=== PATIENT | female | born 1975 | race Caucasian/White ===

== ENCOUNTER → 2018-09-03 15:32 | Outpatient (CLI) | payer OTHER, SELFPAY ==
[2016-02-16 12:21] VITALS: BMI 23.1
== END ==
PROVIDERS: Family Provider Family Medicine; PCP Family Medicine; Referring Provider Otolaryngology; Visit Provider Otolaryngology
DX: M27.2 Inflammatory conditions of jaws (principal)
CPT/HCPCS: 87070; 87077; 87186; 87205

== ENCOUNTER → 2023-04-10 | Outpatient (CLI) | payer MEDICAID, SELFPAY ==
[2023-04-10 11:31] VITALS: PULSE 71; PULSE 80; PULSE 85; PULSE 87; PULSE 88; PULSE 90; PULSE 91; PULSE 93; O2SAT 97; O2SAT 98; O2SAT 99
--- NOTE | 2023-04-10 16:28 | PCM.PSN.6M ---
PSN 6 Minute Walk Test 6 Minute Walk Test 6 Minute Walk Test: 6 Minute Walk Test PSN:6-Minute Walk Test Start: 04/10/23 11:31 Freq: Status: Active Protocol: [id number] Document 04/10/23 11:31 [facility] (Rec: 04/10/23 11:34 [facility] [id number]) 6 Minute Walk Test Date Performed 04/10/23 Time Performed 11:15 Height 5 ft 7 in Weight: 68.946 kg Weight in Pounds 152.[address]: Dr Cool Assistive device used: None Pre-test Oxygen Delivery Method Room Air Pulse Ox 98 Pulse Rate (60-100) 71 Dyspnea Craig Scale (0-10) 0 Exertion Craig Scale (6-20) 6 1st minute Oxygen Delivery Method Room Air Pulse Ox 97 Pulse Rate (60-100) 85 2nd minute Oxygen Delivery Method Room Air Pulse Ox 97 Pulse Rate (60-100) 90 3rd minute Oxygen Delivery Method Room Air Pulse Ox 97 Pulse Rate (60-100) 93 4th minute Oxygen Delivery Method Room Air Pulse Ox 97 Pulse Rate (60-100) 88 5th minute Oxygen Delivery Method Room Air Pulse Ox 98 Pulse Rate (60-100) 91 6th minute Oxygen Delivery Method Room Air Pulse Ox 98 Pulse Rate (60-100) 87 Dyspnea Craig Scale (0-10) 2 Exertion Craig Scale (6-20) 10 Post-test Oxygen Delivery Method Room Air Pulse Ox 99 Pulse Rate (60-100) 80 Full Laps Walked 21 Partial Lap, Number of Tiles Walked 12 Total Distance Walked (ft) 1251 Interpretation Interpretation: The patient was able to ambulate 1251 feet over the course of 6 minutes on room air with no assistive devices or breaks. The patient experienced no significant desaturation or tachycardia during testing. These findings are consistent with a normal walking oximetry. Recommendations Recommendations: No supplemental oxygen is indicated.
== END | disposition home or self-care (01) ==
LOC: PSN 11:12
PROVIDERS: PCP Family Medicine; Referring Provider Internal Medicine Critical Care Medicine; Visit Provider Internal Medicine Critical Care Medicine
DX: J44.9 Chronic obstructive pulmonary disease, unspecified (principal)
CPT/HCPCS: 94618